=== PATIENT | female | born 1930 | race Caucasian/White ===

== ENCOUNTER 2017-01-22 11:26 | Inpatient (IN) | payer MEDICARE, BC ==
--- NOTE | ~2017-01-22 | CN ---
Consultation Report [facility] [address] [place]. [address] NAME: PAT KHAN : 32 STATUS : ADM IN PAT#: [id number] AGE: 87 ADM/REG DATE : 01/22/17 MR#: [id number] REPORT SERV DATE: 01/22/17 DICTATED BY: RC PARKINSON III DATE: 01/22/17 REPORT STATUS : Draft TRANSCRIBED BY: MODHira DATE: 01/22/17 CONSULTATION DATE OF CONSULTATION: The patient is an 87-year-old white female, with a history of COPD, tobacco abuse, osteoarthritis, chronic low back pain and peptic ulcer disease, who presents for evaluation of upper abdominal pain, gas, bloating, and nausea. She was in the emergency room three days ago and a CT scan showed gastric thickening and a dilated bile duct. She has had multiple scopes in the past with adenomatous polyps, but no colonoscopy in nine years. She has had ulcers dating back to 2003, for which she was treated with healing on scopes in 2004 and 2005. She takes an aspirin and is on no acid suppressive agent, and she continues to smoke. She has had a dilated bile duct to 10 mm in the past. Attempts to do an ERCP in 2003 failed. MRI showed no mass in the pancreas or any other abnormality, just appeared patulous. The papilla appeared normal on ERCP in 2003. Her bile duct is progressively dilated to now 15 mm. She has had sludge in the gallbladder as documented previously and now has layering stones that are small. MRIs in the past have documented no filling defects in the bile duct. She has had no abnormal liver tests. Her bowels are stable. No bleeding. PAST SURGICAL HISTORY: Cataracts, tonsillectomies, lumbar fusions. ALLERGIES: SULFA. MEDICATIONS: Aspirin, Lexapro, Zofran, Symbicort, vitamin B12. FAMILY HISTORY: Coronary artery disease, hypertension. SOCIAL HISTORY: She is . She smokes. Drinks two glasses of wine every night. PAST MEDICAL HISTORY: As noted. PHYSICAL EXAMINATION: GENERAL: The patient is a pleasant, spry, elderly white female. VITAL SIGNS: Stable. She is afebrile. HEAD: Atraumatic, normocephalic. Sclerae anicteric. Oropharynx is clean but dry. CHEST: Clear to auscultation anteriorly. CV: S1, S2. ABDOMEN: Soft, nontender. Good bowel sounds. EXTREMITIES: No edema. LABS: Reviewed. ASSESSMENT AND PLAN: 1. Abdominal pain with nausea and vomiting. As noted, the patient is an elderly white Consultation Report [facility] [address] [place]. [address] NAME: PAT KHAN : 32 STATUS : ADM IN PAT#: [id number] AGE: 87 ADM/REG DATE : 01/22/17 MR#: [id number] REPORT SERV DATE: 01/22/17 DICTATED BY: RC PARKINSON III DATE: 01/22/17 REPORT STATUS : Draft TRANSCRIBED BY: MODL DATE: 01/22/17 female with abdominal pain with nausea and vomiting. She has not eaten much and her appetite is down. CT scan as noted. She has a history of ulcers and continues to be on aspirin and smokes. As such, we will do the following:. a. Acid suppression. b. Control symptoms. c. Follow up labs. d. EGD. 2. Dilated bile duct with stones. As noted, the patient has progressively dilated bile duct with stones. The concern of course is whether or not she has choledocholithiasis. She is hesitant about any aggressive evaluation and certainly is against any surgery if she does not have to have it. Certainly, there is bargaining going on. As such, we would consider the following:. a. MRI versus an EUS versus ERCP. b. Follow up liver tests. MY/MODL Rc Parkinson III, M.D. / [id number] CC: MD Nathaniel Barragan M.D. Donald Hetzel, M.D.
--- NOTE | ~2017-01-22 | DS ---
Discharge Summary [facility] [place] [id number] [facility] [place]. [address] NAME: PAT KHAN : 32 STATUS : ADM IN [facility]#: [id number] AGE: 87 ADM/REG DATE : 01/22/17 MR#: [id number] REPORT SERV DATE: 01/24/17 DICTATED BY: MARNI ROSARIO DATE: 01/24/17 REPORT STATUS : Draft TRANSCRIBED BY: MODL DATE: 01/24/17 ADMISSION DATE: 01/22/2017 DISCHARGE DATE: [facility] DIAGNOSES: 1. Abdominal pain, distention, nausea, and vomiting, improved. 2. Urinary tract infection, improved. 3. History of chronic obstructive pulmonary disease. 4. History of anxiety. 5. History of osteoarthritis. 6. Chronic lower back pain. CONSULTATIONS: Surgery and GI. PROCEDURES: 1. CT scan of the abdomen and pelvis done on the 01/19/2017 showing diffuse thickening of the decompressed stomach and infiltration of surrounding fat planes about the gastric cardia and proximal gastric body suggesting a severe diffuse gastritis pattern, cholelithiasis without cystitis, chronic dilated common bile duct. No visible obstructing stones, calculus, or masses. Diverticulosis without diverticulitis. 2. Gallbladder ultrasound done on the 01/22/2017 showing gallbladder sludge and calculi. No tenderness over the gallbladder dilated common duct. CURRENT PHYSICAL FINDINGS AND HISTORY OF PRESENT ILLNESS: Please see initial dictated H and P by Dr. Morataya. In brief, the patient is an 87-year-old female, who was admitted after a previous ER visit on 01/19/2017 with non-resolving symptoms of nausea, vomiting, and abdominal pain. Initial vital signs showed a BP of 173/76, temperature of 97.9, and she had no significant fever here. Lab work showed a normal BMP, normal LFTs, normal troponin, normal TSH, normal lipase. A1c was 6.0. CBC was unremarkable. Urinalysis showed large leukocytes, 6 to 7 wbc's, occasional bacteria. Subsequent urine culture grew out multiple organisms suspected contamination. Blood cultures done on 01/22/2017 are negative to date. HOSPITAL COURSE: The patient was admitted. She was started on IV fluids. She was started on vitamin supplements. GI and General Surgery were consulted. She was started on Rocephin for her UTI. She was started on electrolyte protocol. Per the patient and family, she seemed to respond relatively rapidly to above treatment. Surgery did not recommend cholecystectomy unless the patient had an ERCP and further proved the gallbladder was the issue. The patient did not feel it was and did not wish to undergo the evaluation at this time. Surgery signed off. GI continued to follow. Recommended withholding of NSAIDs and continue her PPI and re-evaluate for symptoms if her prior to undergoing any further discussion of elective cholecystectomy. The patient and her daughter were agreeable with this plan. When I reassessed her on the morning of 01/24/2017, she had a reasonably normal Discharge Summary [place] [id number] [facility] [place]. [address] NAME: PAT KHAN : 32 STATUS : ADM IN [facility]#: [id number] AGE: 87 ADM/REG DATE : 01/22/17 MR#: [id number] REPORT SERV DATE: 01/24/17 DICTATED BY: MARNI ROSARIO DATE: 01/24/17 REPORT STATUS : Draft TRANSCRIBED BY: KRISTYN DATE: 01/24/17 breakfast and lunch. She was tolerating both fine. She had a benign exam with no tenderness and normal bowel sounds. She states that she had been up to the bathroom and her daughter states that she has plenty of help at home and they did not feel that her getting around would be an issue as she is fairly limited with her chronic back problems anyway. They asked what further treatment will be rendered here, which should be close observation only at this point as long as she is tolerating her meals. She has had two small bowel movements here. She was declining any aggressive GI therapy preferring to work with ambulation, suppositories, or laxatives at home as needed, and this seemed reasonable. She requested to be discharged today and after a lengthy discussion with the patient's family, discussion of her current tests, plan for if symptoms do not improve in covering her eating, her ambulation, and her bowel movements. It did seem reasonable to discharge her today. DISPOSITION: As follows. She is discharged home. She will follow up with her PCP in a week for posthospital followup. Recheck of the UA to make sure the doses of Rocephin for eradicating her UTI and to monitor her symptoms. Appointments with GI have also been requested for GI in one to two weeks and Surgery four to six weeks. She was given a prescription for Protonix 40 b.i.d. She was asked withhold the aspirin. Medications otherwise will be vitamin B12, Lexapro 10, Symbicort 2 puffs daily, and Zofran 4 b.i.d. p.r.n. Should she have any recurrent symptoms, failure to tolerate a reasonable diet, difficulty with care at home, or inability to pass a normal bowel movement, she will return and voices understanding of above instructions. DICTATED BY: Tony Jackman/KRISTYN Marni Rosario M.D. / [id number] CC: Tony Jackman M.D.
--- NOTE | ~2017-01-22 | EGD ---
EGD REPORT [facility] [address] [address] NAME: PAT KHAN : 32 STATUS : ADM IN PAT#: [id number] AGE: 87 ADM/REG DATE : 01/22/17 MR#: [id number] REPORT SERV DATE: 01/23/17 DICTATED BY: RC JOHNSON III DATE: 01/23/17 REPORT STATUS : Draft [facility]ANS[facility]: [facility] DATE: 01/23/17 [facility] Patient Name: Pat Khan Date of : 1930 Attending MD: RC JOHNSON III, MD Procedure Date No Time: 01/23/2017 Procedure: Upper GI endoscopy Indications: Dyspepsia, Heartburn, Abnormal CT of the GI tract, Nausea Medicines: Propofol per Anesthesia Complications: No immediate complications. Procedure: Pre-Anesthesia Assessment: - ASA Grade Assessment: III - A patient with severe systemic disease. After obtaining informed consent, the endoscope was passed under direct vision. Throughout the procedure, the patient's blood pressure, pulse, and oxygen saturations were monitored continuously. The GIF [id number] was introduced through the mouth, and advanced to the third part of duodenum. The upper GI endoscopy was accomplished with ease. The patient tolerated the procedure well. Findings: A non-obstructing Schatzki ring (acquired) was found at the gastroesophageal junction. A medium-sized hiatus hernia was present. A few localized erosions without bleeding were found in the duodenal bulb. Many non-bleeding cratered gastric ulcers with no stigmata of bleeding were found in the gastric antrum. The largest lesion was 6 mm in largest dimension. Biopsies were taken with a cold forceps for histology. Impression: - Non-obstructing Schatzki ring. - Hiatus hernia. - Duodenal erosions without bleeding. - Gastric ulcers with clean base. Biopsied. Recommendation: - Await pathology results. Procedure Code(s): --- Professional --- 83391, Esophagogastroduodenoscopy, flexible, transoral; with biopsy, single or multiple Diagnosis Code(s): --- Professional --- K22.2, Esophageal obstruction EGD REPORT [address] [address] NAME: PAT KHAN : 32 STATUS : ADM IN PAT#: [id number] AGE: 87 ADM/REG DATE : 01/22/17 MR#: [id number] REPORT SERV DATE: 01/23/17 DICTATED BY: RC JOHNSON III DATE: 01/23/17 REPORT STATUS : Draft TRANSCRIBED BY: [employer] DATE: 01/23/17 K44.9, Diaphragmatic hernia without obstruction or gangrene K26.9, Duodenal ulcer, unspecified as acute or chronic, without hemorrhage or perforation K25.9, Gastric ulcer, unspecified as acute or chronic, without hemorrhage or perforation K30, Functional dyspepsia R12, Heartburn R93.3, Abnormal findings on diagnostic imaging of other parts of digestive tract R11.0, Nausea CPT copyright 2013 [employer]. All rights reserved. The codes documented in this report are preliminary and upon medical billing coder review may be revised to meet current compliance requirements. RC JOHNSON III, MD 01/23/2017 11:17 AM This report has been signed electronically. Number of Addenda: 0 Note Initiated On: 01/23/2017 9:15 AM Scope Withdrawal Time 0 hours 0 minutes 0 seconds [id number] [address]
--- NOTE | ~2017-01-22 | HP ---
History And Physical [place] [address] [facility] [place]. [address] NAME: PAT KHAN : 32 STATUS : ADM IN [facility]#: [id number] AGE: 87 ADM/REG DATE : 01/22/17 MR#: [id number] REPORT SERV DATE: 01/22/17 DICTATED BY: AMELIA MEJÍA DATE: 01/22/17 REPORT STATUS : Draft TRANSCRIBED BY: MODL DATE: 01/22/17 DATE OF ADMISSION: 01/22/2017 CHIEF COMPLAINT: Not better, nausea and vomiting, abdominal distention and pain. HISTORY OF PRESENT ILLNESS: Obtained from the patient as well as from the patient's family present at the bedside and emergency room documents. Also, prior medical records, that are rather limited, available to us were thoroughly reviewed. According to the information available, the patient is a pleasant 87-year-old white woman with history of COPD and anxiety, who was actually evaluated in the emergency room department on 01/19/2017 for similar symptoms of abdominal pain, distention with nausea and vomiting, unable to tolerate p.o. intake. At that time, the patient was investigated with a CT scan of the abdomen and pelvis as well as laboratory data. Laboratory data was benign and nonrevealing in appearance, a slightly elevated white cell count of 12.2, normal liver function tests, normal lipase, and normal chemistry. The CT scan of the abdomen and pelvis showed "diffuse thickening of the stomach and infiltration of the surrounding fat planes about the gastric cardia and proximal gastric body, suggesting a severe diffuse gastritis pattern;" cholelithiasis, no acute cholecystitis pattern; chronic dilated common bile duct; no visible obstructing stone (full report attached to chart and discussed with the patient and family). It seems that at that time the patient's symptoms had improved while staying in the emergency room, and she was discharged home with recommendation to follow up as soon as possible with her primary care provider. The patient has contacted her primary care provider on Monday, that was right before this long weekend, and she was instructed to come to his office during the upcoming week, but if any problems the patient to return to the emergency room. Therefore, today as the patient had failed to improve, had continued to have nausea and vomiting of gastric content, unable to tolerate p.o. intake, feeling sick all over with "stuff stuck up to the throat," the patient and family decided to come back to the emergency room department. Upon arrival in the emergency room, the patient was noticed to be in [id number] distress due to her symptoms and received IV fluids and Zofran for nausea with minimal improvement in her symptoms. Her symptoms continued to be present throughout her emergency room stay. She was also noticed to be hypoxemic with an oxygen saturation of 88% on room air upon arrival. Further investigation in the emergency room revealed a gallbladder ultrasound that showed cholelithiasis, but no signs of cholecystitis, no tenderness over the gallbladder area; normal white cell count and lipase; liver function tests not rechecked at this time; urinalysis, which was not done at previous emergency room visit, was consistent with likely urinary tract infection. Because of the above presentation with failure to improve with the above outpatient treatment and management with significant findings of UTI and acute hypoxemia, the patient was referred to the hospitalist service for further management and evaluation. PAST MEDICAL HISTORY: Significant for COPD, the patient still is smoking despite strong advice to quit doing so; history of anxiety; history of osteoarthritis and chronic lower back pain, previous back surgery; history of occasionally chronic headache. It seems that the patient had home oxygen that she is supposed to use "as needed" at 2 L by nasal cannula. PAST SURGICAL HISTORY: Significant for bilateral cataract surgery with intraocular lens History And Physical [address] [address] NAME: PAT KHAN : 32 STATUS : ADM IN [facility]#: [id number] AGE: 87 ADM/REG DATE : 01/22/17 MR#: [id number] REPORT SERV DATE: 01/22/17 DICTATED BY: AMELIA MEJÍA DATE: 01/22/17 REPORT STATUS : Draft TRANSCRIBED BY: MODHira DATE: 01/22/17 implant, bilateral tonsillectomy and back surgery in 2004, as well as another surgery with fusion in 2010. ALLERGIES: SULFA ANTIBIOTICS. HOME MEDICATIONS: According to the list provided, the patient is supposed to take aspirin 81 mg p.o. daily; Lexapro 10 mg p.o. daily; Zofran 4 mg to 8 mg p.o. b.i.d. p.r.n. nausea and vomiting (new prescription, prescribed three days ago at discharge from ER); Symbicort 160/4.5 two puffs inhalation daily; and vitamin B12, 1000 mcg p.o. daily. FAMILY HISTORY: Significant for coronary artery disease, status post prior [place], hypertension. SOCIAL HISTORY: She is , retired, lives alone. She still smokes presently from half a pack to one pack of cigarettes daily and she has done so for over 70 years. She drinks two glasses of wine every night. Denies illicit or recreational drug abuse. REVIEW OF SYSTEMS: Per H and P, otherwise negative in all review of systems. Please note that the comprehensive review of systems was obtained and pertinent positives were including in the H and P. the patient denies any fever or chills. Denies any coughing or any URI-like symptoms. Denies any diarrhea. She stated that she has constipation most of the time. Denies any GI bleeding symptoms. Denies any weight loss or weight gain. Denies actually dysuria, increased frequency, or other urinary symptoms. Denies hematuria. Positive for increased fatigue and overall feeling sick and run down. The patient had a colonoscopy apparently over a year ago, and she had been followed previously by Dr. Renee as per the patient's recollection. Unsure if she ever had an upper EGD, endoscopy. There is no personal history of GI malignancy or family history of GI malignancy. PHYSICAL EXAMINATION: GENERAL: Pleasant, cooperative, in mild distress due to shortness of breath and abdominal discomfort. VITAL SIGNS: Upon arrival in the emergency room, blood pressure 166/117, pulse 99, respiratory rate 18, temperature 98.6, oxygen saturation 88% on room air and up to 92% on 2 L by nasal cannula. HEENT: With bilateral cataracts. Extraocular movements intact. Throat, mild erythema, no exudate, no signs of tenderness. Atraumatic and normocephalic. NECK: Supple. No JVD. No bruit. No thyromegaly. No lymph nodes. LUNGS: Emphysematous confirmation with few dry crackles bilaterally. No wheezing. Overall good airway movement. HEART: Positive S1 and S2. Regular rate and rhythm. Positive mitral regurgitation murmur at the apex. Positive aortic sclerosis murmur. ABDOMEN: Positive bowel sounds. Soft with mild epigastric tenderness. Palpable liver, but no hepatosplenomegaly appreciated. Negative Estrella sign. No rebound tenderness. No guarding. EXTREMITIES: Decreased range of motion with osteoarthritic changes. No clubbing, no cyanosis, no edema. +2 pulses. No calf tenderness. NEUROLOGIC: Alert and oriented x3. Grossly nonfocal. No tremors. No withdrawal symptoms. History And Physical [address] [place]. [address] NAME: PAT KHAN : 32 STATUS : ADM IN PAT#: [id number] AGE: 87 ADM/REG DATE : 01/22/17 MR#: [id number] REPORT SERV DATE: 01/22/17 DICTATED BY: AMELIA MEJÍA DATE: 01/22/17 REPORT STATUS : Draft TRANSCRIBED BY: MODL DATE: 01/22/17 Cranial nerves 2 through 12 grossly intact. Motor strength 4/5 to 5/5 symmetrical bilateral. Deep tendon reflexes 2/2 symmetrical bilateral. BACK: With decreased range of motion. No focal localized tenderness. No CVA tenderness. SKIN: No bruises, no rashes, no lacerations. SIGNIFICANT LABORATORY DATA: Urinalysis was cloudy, trace ketones, large LE, small blood, white cells 67 with bacteria occasional. Chest x-ray (personal reading) shows chronic interstitial changes, no acute infiltrates. Sodium 140, potassium 4.2, chloride 104, bicarb 33, BUN 10, creatinine 0.6, glucose 124, calcium 8.8, magnesium 2.1. Lipase 80, which is within normal limits. Troponin I less than 0.02. White cell count 10.2, hemoglobin 15.5, platelet count 219. INR 1.1. Gallbladder ultrasound showed gallbladder sludge and calculi and no tenderness over the gallbladder, dilated common bile duct. Note that the previously done CT scan of the abdomen and pelvis without contrast on 01/19/2017 showed "diffuse thickening of decompressed stomach and infiltration of the surrounding fat planes about the gastric cardia and proximal gastric body, suggesting a severe diffuse gastritis pattern; cholelithiasis, no acute cholecystitis pattern; and chronic dilated common bile duct" (full report attached to chart and discussed with the patient and family). EKG, not available and not done. ASSESSMENT AND PLAN AND PROBLEM LIST: The patient is a pleasant 87-year-old white woman, admitted with failure of outpatient management of intractable nausea and vomiting with concern for severe gastritis and cholelithiasis, found to have also urinary tract infection and hypoxemia. Impression: 1. GI problem:. a. Intractable nausea and vomiting, failed outpatient treatment. b. Gastritis likely, possible peptic ulcer disease. c. Cholelithiasis and doubt acute cholecystitis. d. For all the above, the patient has been admitted on the hospitalist service. We are going to obtain a GI consultation and general surgical consultation as per the patient's family request. We are going to start PPI IV with Protonix 40 mg IV daily, keep on clear liquid diet for now, recheck liver function tests and continue to monitor vital signs as well as white cell count, lipase, and LFTs. Provide adequate symptomatic treatment for her nausea, vomiting, abdominal pain and we are going to continue to provide IV hydration and symptomatic treatment. 2. Urinary tract infection without hematuria, likely acute cystitis. We are going to continue Rocephin and monitor urine culture results. 3. Hyperglycemia, likely reactive. We are going to monitor blood sugar level and check a hemoglobin A1c. 4. Pulmonary:. a. Acute hypoxemic respiratory failure. b. Chronic obstructive pulmonary disease. c. Tobacco dependency disorder, moderate to severe. d. For all the above, we are going to provide adequate oxygen supplementation and continue her bronchodilator with Symbicort as well as DuoNeb and provide smoking cessation education and offer nicotine replacement therapy as a nicotine patch 21 mg History And Physical [address] [place]. [address] NAME: PAT KHAN : 34 STATUS : ADM IN [facility]#: [id number] AGE: 87 ADM/REG DATE : 01/22/17 MR#: [id number] REPORT SERV DATE: 01/22/17 DICTATED BY: AMELIA MEJÍA DATE: 01/22/17 REPORT STATUS : Draft TRANSCRIBED BY: KRISTYN DATE: 01/22/17 daily. 5. Anxiety. Provide emotional support, continue her home medications, and use p.r.n. Ativan. 6. Alcohol dependence, moderate. Recommended to decrease amount of daily wine intake and give thiamine and continue multivitamin, use p.r.n. Ativan if any signs of withdrawal. 7. Elevated blood pressure without diagnosis of hypertension. Continue to monitor. Provide adequate pain control and symptomatic relief for her GI problem and use IV hydralazine p.r.n. for increased blood pressure. 8. Osteoarthritis, osteoporosis, deconditioning with known degenerative disk disease and chronic lower back pain, status post prior back surgeries. We are going to encourage mobilization and physical therapy and provide adequate pain control. PROGNOSIS: Moderately good for this admission. Discussed with the patient and the patient's family present at bedside. Questions were answered in full. Please note that the patient is a full code at this moment as discussed with the patient at bedside. Please note also the written H and P and written orders and instructions. RF/MODL elia Mejía M.D. / [id number] CC: MD Nathaniel Barragan M.D.
--- NOTE | ~2017-01-22 | CN ---
Consultation Report [address] [place]. [address] NAME: PAT KHAN : 34 STATUS : DIS IN PAT#: [id number] AGE: 87 ADM/REG DATE : 01/22/17 MR#: [id number] REPORT SERV DATE: 01/26/17 DICTATED BY: ELEAZAR CARRINGTON DATE: 01/25/17 REPORT STATUS : Draft TRANSCRIBED BY: MODL DATE: 01/25/17 CONSULT NOTE. DATE OF CONSULTATION: 01/23/2017 CONSULT SERVICE: General Surgery. REASON FOR CONSULTATION: Cholelithiasis, common duct dilatation. HISTORY OF PRESENT ILLNESS: The patient is an 87-year-old female with COPD, osteoarthritis, chronic back pain, peptic ulcer disease, who is currently on aspirin and continues to smoke, who presented with upper abdominal pain, gas bloating, and nausea. She had a CT of the abdomen and pelvis on 01/19/2017 that demonstrated a gastric thickening and common bile duct dilatation. However, this common bile duct dilatation has been present for a number of years and has been studied multiple times both with MRI and ERCP. No etiology has been identified and she has had no biliary obstructive symptoms. Her laboratory data of course is within normal limits. Her white blood cell count has improved since her admission medical therapy. Gastroenterology has been seeing this patient. PAST SURGICAL HISTORY: 1. Cataracts. 2. Tonsillectomy. 3. Lumbar fusion x2. PAST MEDICAL HISTORY: As above. FAMILY HISTORY: Noncontributory. SOCIAL HISTORY: As above. Positive tobacco use. MEDICATIONS: 1. Aspirin. 2. Zofran. 3. Lexapro. 4. Symbicort. ALLERGIES: TO SULFA. REVIEW OF SYSTEMS: A 12-point review of systems was negative except as per HPI. PHYSICAL EXAMINATION: VITAL SIGNS: Temperature 98.3 degrees Fahrenheit, pulse 89, respiratory rate 16, O2 saturation 98% on nasal cannula 2 L, and blood pressure 102/51. Consultation Report [address] [place]. [address] NAME: PAT KHAN : 34 STATUS : DIS IN PAT#: [id number] AGE: 87 ADM/REG DATE : 01/22/17 MR#: [id number] REPORT SERV DATE: 01/26/17 DICTATED BY: ELEAZAR CARRINGTON [place] DATE: 01/25/17 REPORT STATUS : Draft TRANSCRIBED BY: MODL DATE: 01/25/17 HEENT: Normocephalic and atraumatic. Pupils are equal, round, and reactive to light. Extraocular movements intact. Moist mucous membranes. NECK: Trachea is in midline. CHEST: Clear to auscultation bilaterally. HEART: Regular rate and rhythm. ABDOMEN: Soft, nondistended, and nontender to palpation. There were no scars visible. No peritoneal signs whatsoever. RECTAL: Deferred. GENITALIA: Deferred. EXTREMITIES: Moves extremities. NEURO: Grossly intact. LABORATORY DATA: As mentioned above. Elevated white blood cell count, but otherwise LFTs within normal range. IMAGING: Ultrasound demonstrates sludge and stones in the common bile duct a 14 mm which is slightly elevated from before. ASSESSMENT AND PLAN: The patient is an 87-year-old female with peptic ulcer disease most likely. 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 GI has taken lead on investigating these and I feel it is very unlikely to be biliary in nature. We will follow up the results from ERCP and MRCP as desired by GI. DICTATED BY: Ermias Nina MD ND/KRISTYN Eleazar Carrington MD / [id number] CC: Sarath Garvin M.D. Nathaniel Diaz M.D.
[~2017-01-22 11:26] MED LIST: ACCUNEB INH; ADVAIR INH; ADVAIR PO; ADVAIR250 INH; ALBUTEROL INH; ASAB PO; AVELOX400 PO; MULTIVITAMI1 PO; NICODERM C21 MG/241 TOP; NORCO1 TA1 PO; OMNICEF300 PO; P20 PO; PRILO PO; SERTRALINE; SPIRIVA INH; VIMOVO; VITAMIN D31000 UNIT PO; XALAT OPH; ZITH250 PO; ZOL50 PO
[2017-01-22 11:56] LABS: BASOPHILS 0.2 %; BASOPHILS ABSOLUTE 0.02 10/3/uL (0.0-0.16); EOSINOPHILS 0.8 %; EOSINOPHILS ABSOLUTE 0.08 10/3/uL (0.0-0.53); HEMOGLOBIN 15.5 g/dL (12.0-16.0); IMMATURE GRANULOCYTES 0.3 %; IMMATURE GRANULOCYTES ABSOLUTE 0.03 10/3/uL (0.0-0.11); LYMPHOCYTES 11.6 %; LYMPHOCYTES ABSOLUTE 1.19 10/3/uL (0.67-4.30); MANUAL DIFF NO %; MEAN CORPUSCULAR HEMOGLOB 31.3 pg (26.0-34.0); MEAN CORPUSCULAR VOLUME 94.8 fL (80-100); MEAN PLATELET VOLUME 8.8 fL (9.2-13.0); MONOCYTES 6.8 %; NEUTROPHILS 80.3 %; NEUTROPHILS ABSOLUTE 8.22 10/3/uL (2.02-8.40); PLATELET COUNT 219 10/3/uL (150-400); RED CELL COUNT 4.96 10/6/uL (4.0-5.6); WHITE BLOOD CELLS 10.2 10/3/uL (4.5-10.5)
[2017-01-22 12:06] LABS: INTERNATIONAL NORMAL RATI 1.1 UNITS (-); PARTIAL THROMBO TIME 27.1 SEC (22.5-37.2); PROTIME (NOT ORD) 13.6 SEC (12.0-14.5)
[2017-01-22 12:15] LABS: BUN (BLOOD UREA NITROGEN) 10 MG/DL (6-23); CALCIUM, SERUM 8.8 MG/DL (8.5-10.4); CHEST PAIN PROFILE TAT 0 Hrs 23 Mins; CHLORIDE, SERUM 104 MMOL/L (96-112); CO2 (CARBON DIOXIDE) 33 MMOL/L (24-34); GFR AFRICAN AMERICAN 96 ML/MIN (>=60); GFR NON AFRICAN AMERICAN 83 ML/MIN (>=60); GLUCOSE, SERUM 124 MG/DL (60-99); POTASSIUM, SERUM 4.2 MMOL/L (3.5-5.3); SODIUM, SERUM 140 MMOL/L (135-148); TROPONIN I <0.02 NG/ML (<0.05)
[2017-01-22 13:13] LABS: ASCORBIC ACID (UR NOT ORDER) NEG (NEG); BILIRUBIN, URINE NEGATIVE (NEG); ER URINALYSIS TAT 0 Hrs 13 Mins; KETONE, URINE TRACE MG/DL (NEG); LEUKOCYTE ESTERASE(NOT OR LARGE (NEG); NITRITE (URINE) NEG (NEG); WBC (NOT ORDERED) (RFLEX) 67 (0-5)
[2017-01-22] MEDS ORDERED: HALF81 PO (14:08)
[2017-01-22] MEDS ORDERED: LEXAPRO10 PO (14:08)
[2017-01-22] MEDS ORDERED: CYANO1000T PO (14:09)
[2017-01-22] MEDS ORDERED: SYMBICORT 160/41 INH INH (14:09)
[2017-01-22] MEDS ORDERED: ZOFRAN4 PO (14:09)
[2017-01-22 18:08] LABS: ALBUMIN 3.2 G/DL (3.5-5.0); DIRECT BILIRUBIN 0.1 MG/DL (0.0-0.4); FREE T4 1.12 NG/DL (0.76-1.46); PHOSPHORUS, SERUM 3.5 MG/DL (2.5-4.5); SGOT(AST) 15 U/L (5-40); SGPT(ALT) 15 U/L (5-65); TOTAL PROTEIN 6.5 G/DL (6.0-8.5)
[2017-01-22 18:09] LABS: ALKALINE PHOSPHATASE 70 U/L (45-117); CK-MB 2.1 NG/ML; CPK 40 U/L (0-200); FOLATE 19.5 NG/ML (>5.2); INDIRECT BILIRUBIN(NOT ORDER) 0.3 MG/DL (0.1-0.9); TOTAL BILIRUBIN 0.4 MG/DL (0-1.2)
[2017-01-23 05:43] LABS: BASOPHILS 0.4 %; BASOPHILS ABSOLUTE 0.03 10/3/uL (0.0-0.16); EOSINOPHILS 4.3 %; EOSINOPHILS ABSOLUTE 0.34 10/3/uL (0.0-0.53); HEMATOCRIT 42.8 % (36.0-48.0); HEMOGLOBIN 13.7 g/dL (12.0-16.0); IMMATURE GRANULOCYTES 0.1 %; IMMATURE GRANULOCYTES ABSOLUTE 0.01 10/3/uL (0.0-0.11); LYMPHOCYTES ABSOLUTE 1.67 10/3/uL (0.67-4.30); MEAN CORPUSCULAR HEMOGLOB 30.5 pg (26.0-34.0); MEAN CORPUSCULAR VOLUME 95.3 fL (80-100); MEAN PLATELET VOLUME 9.1 fL (9.2-13.0); MONOCYTES 7.1 %; MONOCYTES ABSOLUTE 0.56 10/3/uL (0.21-1.20); NEUTROPHILS 67.1 %; NEUTROPHILS ABSOLUTE 5.33 10/3/uL (2.02-8.40); PLATELET COUNT 209 10/3/uL (150-400); RBC DISTRIBUTION WIDTH 14.2 % (12.0-16.0); RED CELL COUNT 4.49 10/6/uL (4.0-5.6); WHITE BLOOD CELLS 7.9 10/3/uL (4.5-10.5)
[2017-01-23 05:44] LABS: MANUAL DIFF NO %
[2017-01-23 05:47] LABS: INTERNATIONAL NORMAL RATI 1.1 UNITS (-)
[2017-01-23 05:56] LABS: A/G RATIO 0.8 (0.7-1.9); ALBUMIN 2.6 G/DL (3.5-5.0); BUN (BLOOD UREA NITROGEN) 7 MG/DL (6-23); CALCIUM, SERUM 8.5 MG/DL (8.5-10.4); CHLORIDE, SERUM 108 MMOL/L (96-112); CPK 34 U/L (0-200); CREATININE 0.61 MG/DL (0.55-1.02); GFR AFRICAN AMERICAN 96 ML/MIN (>=60); GFR NON AFRICAN AMERICAN 83 ML/MIN (>=60); GLOBULIN 3.1 G/DL (2.5-4.1); PHOSPHORUS, SERUM 3.3 MG/DL (2.5-4.5); POTASSIUM, SERUM 4.1 MMOL/L (3.5-5.3); SGOT(AST) 12 U/L (5-40); SGPT(ALT) 15 U/L (5-65); SODIUM, SERUM 144 MMOL/L (135-148); TOTAL BILIRUBIN 0.4 MG/DL (0-1.2); TOTAL PROTEIN 5.7 G/DL (6.0-8.5); TROPONIN I <0.02 NG/ML (<0.05)
[2017-01-23 06:01] LABS: ALKALINE PHOSPHATASE 58 U/L (45-117); CK-MB 2.3 NG/ML; CO2 (CARBON DIOXIDE) 27 MMOL/L (24-34); DIRECT BILIRUBIN < 0.1 MG/DL (0.0-0.4); GLUCOSE, SERUM 98 MG/DL (60-99); INDIRECT BILIRUBIN(NOT ORDER) 0.3 MG/DL (0.1-0.9)
[2017-01-24 06:00] LABS: BASOPHILS 0.4 %; BASOPHILS ABSOLUTE 0.03 10/3/uL (0.0-0.16); EOSINOPHILS 5.9 %; EOSINOPHILS ABSOLUTE 0.44 10/3/uL (0.0-0.53); HEMATOCRIT 40.3 % (36.0-48.0); HEMOGLOBIN 13.3 g/dL (12.0-16.0); IMMATURE GRANULOCYTES 0.1 %; IMMATURE GRANULOCYTES ABSOLUTE 0.01 10/3/uL (0.0-0.11); LYMPHOCYTES 20.5 %; LYMPHOCYTES ABSOLUTE 1.52 10/3/uL (0.67-4.30); MEAN CORPUSCULAR HEMOGLOB 31.1 pg (26.0-34.0); MEAN CORPUSCULAR VOLUME 94.4 fL (80-100); MEAN PLATELET VOLUME 8.9 fL (9.2-13.0); MONOCYTES 8.9 %; MONOCYTES ABSOLUTE 0.66 10/3/uL (0.21-1.20); NEUTROPHILS 64.2 %; NEUTROPHILS ABSOLUTE 4.77 10/3/uL (2.02-8.40); PLATELET COUNT 190 10/3/uL (150-400); RBC DISTRIBUTION WIDTH 14.3 % (12.0-16.0); RED CELL COUNT 4.27 10/6/uL (4.0-5.6); WHITE BLOOD CELLS 7.4 10/3/uL (4.5-10.5)
[2017-01-24 06:01] LABS: MANUAL DIFF NO %
[2017-01-24] MEDS ORDERED: PROTONIX PO (14:13)
== END 2017-01-24 15:12 | disposition home or self-care (01) | DRG 383 ==
LOC: ER 11:26 → 2SO 15:49
PROVIDERS: Emergency Medicine; Internal Medicine; Internal Medicine Gastroenterology; Student in an Organized Health Care Education/Training Program
PROC: 0DB68ZX Excision of Stomach, Via Natural or Artificial Opening Endoscopic, Diagnostic (ICD-10-PCS; principal; 2017-01-23 11:09)
DX: K25.9 Gastric ulcer, unspecified as acute or chronic, without hemorrhage or perforation (principal); J96.01 Acute respiratory failure with hypoxia; N39.0 Urinary tract infection, site not specified; N30.00 Acute cystitis without hematuria; T39.315A Adverse effect of propionic acid derivatives, initial encounter; J44.9 Chronic obstructive pulmonary disease, unspecified; K22.2 Esophageal obstruction; K80.20 Calculus of gallbladder without cholecystitis without obstruction; K26.9 Duodenal ulcer, unspecified as acute or chronic, without hemorrhage or perforation; M54.9 Dorsalgia, unspecified; F10.20 Alcohol dependence, uncomplicated; G89.29 Other chronic pain; F41.9 Anxiety disorder, unspecified; F17.210 Nicotine dependence, cigarettes, uncomplicated; M19.90 Unspecified osteoarthritis, unspecified site; K29.70 Gastritis, unspecified, without bleeding; K44.9 Diaphragmatic hernia without obstruction or gangrene; R73.9 Hyperglycemia, unspecified; K59.00 Constipation, unspecified; K30 Functional dyspepsia; R12 Heartburn; M81.0 Age-related osteoporosis without current pathological fracture; K82.8 Other specified diseases of gallbladder; K57.90 Diverticulosis of intestine, part unspecified, without perforation or abscess without bleeding; Z88.2 Allergy status to sulfonamides; Z98.890 Other specified postprocedural states; Z82.49 Family history of ischemic heart disease and other diseases of the circulatory system; Z87.11 Personal history of peptic ulcer disease; Z79.899 Other long term (current) drug therapy; Z79.82 Long term (current) use of aspirin
CPT/HCPCS: 71010; 74176; 76705; 80048; 80053; 80069; 80076; 81001; 82550; 82553; 82607; 82746; 83036; 83690; 83735; 83880; 84100; 84439; 84443; 84484; 85025; 85610; 85730; 87040; 87086; 88305; 88342; 94640; 99284; 99285; A9270-GY; C9113; J2405; J2550; J3411